=== PATIENT | male | born 1980 | race Caucasian/White ===

== ENCOUNTER 2018-02-01 14:15 | Emergency (ER) | payer OTHER ==
[~2018-02-01] VITALS: Ht 180.3 cm; Wt 82.0 kg
[2018-02-01 14:41] VITALS: BP 120/59; PULSE 81; RESP 18; TEMP 98.3; O2SAT 98
--- NOTE | 2018-02-01 15:16 | RADRPT ---
EXAM DATE/TIME: 02/01/2018 15:00 [facility] COMPARISON: No previous studies available for comparison. INDICATIONS : Lower left chest pain. MEDICAL HISTORY : None. SURGICAL HISTORY : None. ENCOUNTER: Initial ACUITY: 1 day PAIN SCORE: 8/10 LOCATION: Bilateral chest FINDINGS: PA and lateral views of the chest demonstrate the lungs to be symmetrically aerated without evidence of mass, infiltrate or effusion. The cardiomediastinal contours are unremarkable. Osseous structure s are intact. CONCLUSION: No acute disease. Deuce Solano MD on February 01, 2018 at 15:12 Board Certified Radiologist. This report was verified electronically.
[2018-02-01] MEDS ORDERED: SODIUM CHLOR 0.9% 1000 ML INJ 1,000 ML IV SCH (17:42)
--- NOTE | 2018-02-01 17:42 | PD ---
HPI Chief Complaint: Injury Time Seen by Provider: 17:27 Travel History International Travel<30 days: No Contact w/Intl Traveler<30days: No Traveled to known affect area: No History of Present Illness HPI 37-year-old male presents to the emergency department with complaint of left lateral rib cage pain after slipping and falling approximately 6 PM feet out of a trailer. Reports shortness of breath. Denies hemoptysis, hematemesis, vomiting. Denies hitting his head or loss of consciousness. Denies neck pain or back pain. Denies abdominal pain. Has not taken any medications or trying treatments to alleviate symptoms. Rates pain 10/10. Worse with taking deep breaths, movement, palpation. Better while at rest. Primary care provider is [facility]. No allergies to penicillin. Denies significant past medical history. Has no other medical complaints. No other modifying factors or associated signs and symptoms. PFSH Past Medical History Medical History: Denies Significant Hx Tetanus Vaccination: < 5 Years Influenza Vaccination: No Social History Alcohol Use: No Tobacco Use: Yes (1/2 PPD) Substance Use: No Allergies-Medications (Allergen,Severity, Reaction): Coded Allergies: penicillin G (Verified Allergy, Severe, Anaphylaxis, 02/01/18) Reported Meds & Prescriptions Reported Meds & Active Scripts Active Diclofenac Sodium DR (Diclofenac Sodium) 75 Mg Tabdr 75 Mg PO BID [place] (Hydrocodone-Acetaminophen) 5 Mg-325 Mg Tab 1 Tab PO Q6H PRN 3 Days Review of Systems Except as stated in HPI: all other systems reviewed are Neg Physical Exam Narrative GENERAL: Well-nourished, well-developed male patient, in no acute distress SKIN: Warm and dry. HEAD: Atraumatic. Normocephalic. EYES: Pupils equal and round. No scleral icterus. No injection or drainage. ENT: Mucosa pink and moist. NECK: Trachea midline. CHEST: Left lateral mid rib cage with reproducible chest wall tenderness; no crepitance or deformity. No retractions or use of accessory muscles. CARDIOVASCULAR: Regular rate and rhythm. No murmur appreciated. RESPIRATORY: No accessory muscle use. Clear to auscultation. Breath sounds equal bilaterally. No retractions or tachypnea. GASTROINTESTINAL: Abdomen soft, tender to LUQ, nondistended. Hepatic and splenic margins not palpable. Bowel sounds are active 4 quadrants. MUSCULOSKELETAL: No obvious deformities. No clubbing. No cyanosis. No edema. NEUROLOGICAL: Awake and alert. Oriented 3. No obvious cranial nerve deficits. Motor grossly within normal limits. Normal speech. Moves all extremities. 5/5 strength to all extremities. PSYCHIATRIC: Appropriate mood and affect; insight and judgment normal. Data Data Last Documented VS Vital Signs Date Time Temp Pulse Resp B/P (MAP) Pulse Ox O2 Delivery O2 Flow Rate FiO2 02/01/18 19:35 02/01/18 17:56 52 15 100 Room Air 02/01/18 14:41 98.3 Orders Orders Chest, Pa & Lat (02/01/18 ) Acetamin-Hydrocod 325-5 Mg ([place] 5-325 (02/01/18 17:45) Methocarbamol (Robaxin) (02/01/18 17:45) Resp Incentive Spirometry (02/01/18 ) Ct Thorax/ Chest W Iv Contrast (02/01/18 ) Complete Blood Count With Diff (02/01/18 17:42) Comprehensive Metabolic Panel (02/01/18 17:42) Lipase (02/01/18 17:42) Prothrombin Time / Inr (Pt) (02/01/18 17:42) Act Partial Throm Time (Ptt) (02/01/18 17:42) Ct Abd/Pel W Iv Contrast(Rout) (02/01/18 17:42) Iv Access Insert/Monitor (02/01/18 17:42) Sodium Chlor 0.9% 1000 Ml Inj (Ns 1000 M (02/01/18 17:42) Sodium Chloride 0.9% Flush (Ns Flush) (02/01/18 17:45) Iohexol 350 Inj (Omnipaque 350 Inj) (02/01/18 19:05) Ed Discharge Order (02/01/18 19:41) Labs Laboratory Tests Test 02/01/18 17:50 White Blood Count 6.7 TH/MM3 Red Blood Count 4.41 MIL/MM3 Hemoglobin 13.5 GM/DL Hematocrit 39.3 % Mean Corpuscular Volume 89.1 FL Mean Corpuscular Hemoglobin 30.7 PG Mean Corpuscular Hemoglobin Concent 34.4 % Red Cell Distribution Width 13.5 % Platelet Count 241 TH/MM3 Mean Platelet Volume 7.6 FL Neutrophils (%) (Auto) 61.7 % Lymphocytes (%) (Auto) 29.7 % Monocytes (%) (Auto) 7.3 % Eosinophils (%) (Auto) 1.0 % Basophils (%) (Auto) 0.3 % Neutrophils # (Auto) 4.1 TH/MM3 Lymphocytes # (Auto) 2.0 TH/MM3 Monocytes # (Auto) 0.5 TH/MM3 Eosinophils # (Auto) 0.1 TH/MM3 Basophils # (Auto) 0.0 TH/MM3 CBC Comment DIFF FINAL Differential Comment Prothrombin Time 10.5 SEC Prothromb Time International Ratio 1.0 RATIO Activated Partial Thromboplast Time 24.3 SEC Blood Urea Nitrogen 12 MG/DL Creatinine 1.04 MG/DL Random Glucose 83 MG/DL Total Protein 6.9 GM/DL Albumin 3.8 GM/DL Calcium Level 8.7 MG/DL Alkaline Phosphatase 82 U/L Aspartate Amino Transf (AST/SGOT) 37 U/L Alanine Aminotransferase (ALT/SGPT) 35 U/L Total Bilirubin 0.5 MG/DL Sodium Level 142 MEQ/L Potassium Level 4.1 MEQ/L Chloride Level 107 MEQ/L Carbon Dioxide Level 29.3 MEQ/L Anion Gap 6 MEQ/L Estimat Glomerular Filtration Rate 80 ML/MIN Lipase 100 U/L MDM Medical Decision Making Medical Screen Exam Complete: Yes Emergency Medical Condition: Yes Medical Record Reviewed: Yes Differential Diagnosis Fall, chest wall contusion, rib fracture, splenic laceration, splenic contusion , abdominal contusion Narrative Course 37-year-old male with left lateral rib cage pain and left upper quadrant abdominal pain on exam after falling approximately 6 feet from a trailer. Reports shortness of breath. Chest x-ray ordered in triage and concluded no acute findings. I discussed the patient with my attending physician, Dr. Marley, and he recommended CT thorax and CT abdomen/pelvis. CBC, CMP, lipase , IV, CT thorax, CT abdomen/pelvis ordered. 1899: Report given to Deuce Willoughby PA-C at change of shift. See his note for final patient disposition. Scripts Diclofenac Sodium DR (Diclofenac Sodium DR) 75 Mg Tabdr 75 MG PO BID, #20 TAB 0 Refills Prov: Jose Marley MD 02/01/18 Hydrocodone-Acetaminophen (Chamois) 5 Mg-325 Mg Tab 1 TAB PO Q6H Y for PAIN for 3 Days, #12 TAB 0 Refills Prov: Jose Marley MD 02/01/18 Pina Thapa Feb 01, 2018 17:42
[2018-02-01] MEDS ORDERED: ACETAMINOPHEN/HYDROcodone 325 MG/5 MG TAB PO ONE (17:45)
[2018-02-01] MEDS ORDERED: SODIUM CHLORIDE 0.9% FLUSH 10 ML FLUSH IV FLUSH PRN (17:45)
[2018-02-01] MEDS ORDERED: METHOCARBAMOL 500 MG TAB PO ONE (17:45)
[2018-02-01 17:56] VITALS: BP 100/64; PULSE 52; RESP 15; O2SAT 100
[2018-02-01 18:13] LABS: AUTOMATED NEUTROPHIL # 4.1 TH/MM3 (1.8-7.7); BASOPHIL % 0.3 % (0.0-2.0); EOSINOPHIL # 0.1 TH/MM3 (0-0.4); HEMATOCRIT 39.3 % (39.0-51.0); HEMOGLOBIN 13.5 GM/DL (13.0-17.0); LYMPH % 29.7 % (9.0-44.0); MEAN CELL VOLUME 89.1 FL (80.0-100.0); MEAN CORPUSCULAR HEMOGLOBIN 30.7 PG (27.0-34.0); MEAN CORPUSCULAR HGB CONC 34.4 % (32.0-36.0); MEAN PLATELET VOLUME 7.6 FL (7.0-11.0); MONO % 7.3 % (0.0-8.0); MONOCYTE # 0.5 TH/MM3 (0-0.9); NEUT % 61.7 % (16.0-70.0); PLATELET COUNT 241 TH/MM3 (150-450); RED BLOOD COUNT 4.41 MIL/MM3 (4.50-5.90); RED CELL DISTRIBUTION WIDTH 13.5 % (11.6-17.2); WHITE BLOOD COUNT 6.7 TH/MM3 (4.0-11.0)
[2018-02-01 18:23] LABS: PROTHROMBIN TIME - PATIENT 10.5 SEC (9.8-11.6)
[2018-02-01 18:35] LABS: ALBUMIN 3.8 GM/DL (3.4-5.0); ALT (GPT) 35 U/L (12-78); AST (GOT) 37 U/L (15-37); BICARBONATE 29.3 MEQ/L (21.0-32.0); BLOOD UREA NITROGEN 12 MG/DL (7-18); CALCIUM 8.7 MG/DL (8.5-10.1); CHLORIDE 107 MEQ/L (98-107); CREATININE 1.04 MG/DL (0.60-1.30); GLOMERULAR FILTRATION RATE 80 ML/MIN (>89); GLUCOSE,RANDOM 83 MG/DL (74-106); SODIUM (NA) 142 MEQ/L (136-145)
[2018-02-01 18:37] LABS: ALKALINE PHOSPHATASE 82 U/L (45-117); TOTAL BILIRUBIN ADULT 0.5 MG/DL (0.2-1.0); TOTAL PROTEIN 6.9 GM/DL (6.4-8.2)
[2018-02-01] MEDS ORDERED: IOHEXOL 350 MG/ML 10 ML VIAL (for RAD DIAG) IVCONTRAST ONE (19:05)
--- NOTE | 2018-02-01 19:18 | RADRPT ---
EXAM DATE/TIME: 02/01/2018 18:58 [facility] COMPARISON: No previous studies available for comparison. INDICATIONS : Slip and fall from trailer, left sided abdominal pain. IV CONTRAST: 87 cc Omnipaque 350 (iohexol) IV ; Cumulative dose for multiple exams. ORAL CONTRAST: No oral contrast ingested. RADIATION DOSE: 9.32 CTDIvol (mGy) ; Combined studies - Thorax/Abdomen/Pelvis MEDICAL HISTORY : None SURGICAL HISTORY : None. ENCOUNTER: Initial ACUITY: 1 day PAIN SCALE: 6/10 LOCATION: Left abdomen TECHNIQUE: Volumetric scanning of the abdomen and pelvis was performed. Using automated exposure control and ad justment of the mA and/or kV according to patient size, radiation dose was kept as low as reasonably achievable to obtain optimal diagnostic quality images. DICOM format image data is available electro nically for review and comparison. FINDINGS: LOWER LUNGS: The visualized lower lungs are clear. LIVER: Homogeneous density without lesion. There is no dilation of the biliary tree. No calcified gallston es. SPLEEN: Normal size without lesion. PANCREAS: Within normal limits. KIDNEYS: Normal in size and shape. There is no mass, stone or hydronephrosis. ADRENAL GLANDS: Within normal limits. VASCULAR: There is no aortic aneurysm. BOWEL/MESENTERY: The stomach, small bowel, and colon demonstrate no acute abnormality. There is no free intraperitone al air or fluid. ABDOMINAL WALL: Within normal limits. RETROPERITONEUM: There is no lymphadenopathy. BLADDER: No wall thickening or mass. REPRODUCTIVE: Within normal limits. INGUINAL: There is no lymphadenopathy or hernia. MUSCULOSKELETAL: No acute fracture or other acute bony abnormality demonstrated. There is evidence of remote right fem oral rodding with hardware removal. CONCLUSION: Negative trauma CT of the abdomen and pelvis. Garland Clifford MD on February 01, 2018 at 19:12 Board Certified Radiologist. This report was verified electronically.
--- NOTE | 2018-02-01 19:29 | RADRPT ---
EXAM DATE/TIME: 02/01/2018 18:58 [facility] COMPARISON: No previous studies available for comparison. INDICATIONS : Trauma, fall from trailer. Left sided chest pain. IV CONTRAST: 87 cc Omnipaque 350 (iohexol) IV ; Cumulative dose for multiple exams. RADIATION DOSE: 9.32 CTDIvol (mGy) ; Combined studies - Thorax/Abdomen/Pelvis MEDICAL HISTORY : None SURGICAL HISTORY : None. ENCOUNTER: Initial ACUITY: 1 day PAIN SCALE: 6/10 LOCATION: Left chest TECHNIQUE: Volumetric scanning of the chest was performed. Using automated exposure control and adjustment of t he mA and/or kV according to patient size, radiation dose was kept as low as reasonably achievable to obtain optimal diagnostic quality images. DICOM format image data is available electronically for review and comparison. Follow-up recommendations for detected pulmonary nodules are based at a minimum on nodule size and pa tient risk factors according to Fleischner Society Guidelines. FINDINGS: LUNGS: There is no consolidation or pneumothorax. No concerning pulmonary nodule is visualized. PLEURA: There is no pleural thickening or pleural effusion. MEDIASTINUM: The heart and great vessels demonstrate no acute abnormality. There is no mediastinal or hilar lymph adenopathy. AXILLAE: Within normal limits. No lymphadenopathy. SKELETAL: Within normal limits for patient age. MISCELLANEOUS: The visualized upper abdominal organs demonstrate no acute abnormality. CONCLUSION: Negative trauma chest CT. Garland Clifford MD on February 01, 2018 at 19:16 Board Certified Radiologist. This report was verified electronically.
[2018-02-01] MEDS ORDERED: DICL75TA PO (19:35)
[2018-02-01] MEDS ORDERED: NORC5TAB PO (19:35)
--- NOTE | 2018-02-01 19:41 | PD ---
Physical Exam Date Seen by Provider: Feb 01, 2018 Time Seen by Provider: 19:04 Narrative GENERAL: This is a well-nourished, well-developed patient, in no apparent distress. SKIN: No rashes, ecchymoses or lesions. Warm and dry. HEAD: Atraumatic. Normocephalic. EYES: PERRL, EOMI, no discharge or injection. No scleral icterus. EARS: Clear NOSE: Nasal turbinates appear normal. THROAT: Mucosa pink and moist. Airway patent. NECK: Trachea midline. supple, moves head freely. LUNGS: Clear to auscultation. CHEST: Soft tissue tenderness to the mid left ribs without deformity or crepitance. No retractions or use of accessory muscles. CV: Regular in rhythm. ABDOMEN: Soft nontender. EXT: No clubbing cyanosis or edema. Data Data Last Documented VS Vital Signs Date Time Temp Pulse Resp B/P (MAP) Pulse Ox O2 Delivery O2 Flow Rate FiO2 02/01/18 17:56 52 15 100/64 (76) 100 Room Air 02/01/18 14:41 98.3 Orders Orders Chest, Pa & Lat (02/01/18 ) Acetamin-Hydrocod 325-5 Mg ([place] 5-325 (02/01/18 17:45) Methocarbamol (Robaxin) (02/01/18 17:45) Resp Incentive Spirometry (02/01/18 ) Ct Thorax/ Chest W Iv Contrast (02/01/18 ) Complete Blood Count With Diff (02/01/18 17:42) Comprehensive Metabolic Panel (02/01/18 17:42) Lipase (02/01/18 17:42) Prothrombin Time / Inr (Pt) (02/01/18 17:42) Act Partial Throm Time (Ptt) (02/01/18 17:42) Ct Abd/Pel W Iv Contrast(Rout) (02/01/18 17:42) Iv Access Insert/Monitor (02/01/18 17:42) Sodium Chlor 0.9% 1000 Ml Inj (Ns 1000 M (02/01/18 17:42) Sodium Chloride 0.9% Flush (Ns Flush) (02/01/18 17:45) Iohexol 350 Inj (Omnipaque 350 Inj) (02/01/18 19:05) Labs Laboratory Tests Test 02/01/18 17:50 White Blood Count 6.7 TH/MM3 Red Blood Count 4.41 MIL/MM3 Hemoglobin 13.5 GM/DL Hematocrit 39.3 % Mean Corpuscular Volume 89.1 FL Mean Corpuscular Hemoglobin 30.7 PG Mean Corpuscular Hemoglobin Concent 34.4 % Red Cell Distribution Width 13.5 % Platelet Count 241 TH/MM3 Mean Platelet Volume 7.6 FL Neutrophils (%) (Auto) 61.7 % Lymphocytes (%) (Auto) 29.7 % Monocytes (%) (Auto) 7.3 % Eosinophils (%) (Auto) 1.0 % Basophils (%) (Auto) 0.3 % Neutrophils # (Auto) 4.1 TH/MM3 Lymphocytes # (Auto) 2.0 TH/MM3 Monocytes # (Auto) 0.5 TH/MM3 Eosinophils # (Auto) 0.1 TH/MM3 Basophils # (Auto) 0.0 TH/MM3 CBC Comment DIFF FINAL Differential Comment Prothrombin Time 10.5 SEC Prothromb Time International Ratio 1.0 RATIO Activated Partial Thromboplast Time 24.3 SEC Blood Urea Nitrogen 12 MG/DL Creatinine 1.04 MG/DL Random Glucose 83 MG/DL Total Protein 6.9 GM/DL Albumin 3.8 GM/DL Calcium Level 8.7 MG/DL Alkaline Phosphatase 82 U/L Aspartate Amino Transf (AST/SGOT) 37 U/L Alanine Aminotransferase (ALT/SGPT) 35 U/L Total Bilirubin 0.5 MG/DL Sodium Level 142 MEQ/L Potassium Level 4.1 MEQ/L Chloride Level 107 MEQ/L Carbon Dioxide Level 29.3 MEQ/L Anion Gap 6 MEQ/L Estimat Glomerular Filtration Rate 80 ML/MIN Lipase 100 U/L [facility] Medical Record Reviewed: Yes Supervised Visit with TAM: Yes Interpretation(s) CBC & BMP Diagram 02/01/18 17:50 Total Protein 6.9, Albumin 3.8, Calcium Level 8.7, Alkaline Phosphatase 82, Aspartate Amino Transf (AST/SGOT) 37, Alanine Aminotransferase (ALT/SGPT) 35, Total Bilirubin 0.5 Last 24 hours Impressions Abdomen/Pelvis CT 02/01/18 1742 Signed Impressions: Service Date/Time: Thursday, February 01, 2018 18:58 - CONCLUSION: Negative trauma CT of the abdomen and pelvis. Garland Clifford MD Chest X-Ray 4/8/18 0000 Signed Impressions: Service Date/Time: Thursday, February 01, 2018 15:00 - CONCLUSION: No acute disease. Deuce Solano MD Chest CT 02/01/18 0000 Signed Impressions: Service Date/Time: Thursday, February 01, 2018 18:58 - CONCLUSION: Negative trauma chest CT. Garland Clifford MD Differential Diagnosis MDM: High Differential diagnoses: Fracture, sprain, strain, dislocation, contusion, neurovascular injury Narrative Course Laboratory tests and x-rays are negative. Patient will be given a short course of Honaker and diclofenac. This is chest contusion, abdominal contusion, fall Diagnosis Primary Impression: Chest contusion Additional Impressions: Abdominal contusion Fall Patient Instructions: General Instructions Departure Forms: Tests/Procedures, Work Release Enter return to work date: Feb 05, 2018 Additional Instruction: Rest. Ice for the next 3 days followed by heat . Honaker and Voltaren. Follow-up with a primary care doctor in one week. Return to the ER for emergencies. Med/Other Pt SpecificInfo: Prescription(s) given Scripts Diclofenac Sodium DR (Diclofenac Sodium DR) 75 Mg Tabdr 75 MG PO BID, #20 TAB 0 Refills Prov: Jose Marley MD 02/01/18 Hydrocodone-Acetaminophen ([place]) 5 Mg-325 Mg Tab 1 TAB PO Q6H Y for PAIN for 3 Days, #12 TAB 0 Refills Prov: Jose Marley MD 02/01/18 Disposition: 01 DISCHARGE HOME Condition: Stable Deuce Willoughby Feb 01, 2018 19:41
== END 2018-02-01 19:48 | disposition home or self-care (01) ==
LOC: NEPD 14:15
DX: S20.219A Contusion of unspecified front wall of thorax, initial encounter (principal); S30.1XXA Contusion of abdominal wall, initial encounter; W17.89XA Other fall from one level to another, initial encounter
CPT/HCPCS: 71046; 71260; 74177; 80053; 83690; 85025; 85610; 85730; 94150; 96360; 99285; J7030; Q9967